=== PATIENT | female | born 1970 | race Hispanic/Latino ===

== ENCOUNTER 2017-08-24 10:52 | Emergency (ER) | payer OTHER ==
[2017-08-24 11:24] VITALS: BP 153/91
[2017-08-24] MEDS ORDERED: TESSALON PERLES PO ONE (12:48)
[2017-08-24] MEDS ORDERED: ZOFRAN ODT PO ONE (12:48)
--- NOTE | 2017-08-24 12:57 | Emergency Department Report ---
- General Chief Complaint: Upper Respiratory Infection Stated Complaint: FLU LIKE SYMPTOMS Time Seen by Provider: 08/24/17 12:01 Source: patient Mode of arrival: Ambulatory Limitations: No Limitations - History of Present Illness Initial Comments: This is a 47-year-old female nontoxic, well nourished in appearance, no acute signs of distress presents to the ED with c/o of nasal congestion, productive cough, nausea, vomiting, rash 1 week. Patient denies recent travels, long car rides, or recent hospital stays. Patient describes productive cough as well as yellow/green mucous production. Patient states she only gets nauseous and vomits every time she coughs but denies otherwise. Patient denies any abdominal pain, chest pain, shortness of breath, fever, chills, nausea, vomiting , headache or stiff neck. Denies any pelvic pain. Denies any back pain. Patient denies any calf pain or tenderness. Denies any hemoptysis. Denies any allergies or past medical history. MD Complaint: cough, sore throat, rhinorrhea, nasal congestion -: week(s) (1) Severity: mild Severity scale (0 -10): 8 Quality: aching Consistency: constant Improves With: nothing Worsens With: nothing Associated Symptoms: rhinorrhea, nasal congestion, sore throat, cough. denies: fever, chills, myalgias, diaphoresis, headache, stiff neck, chest pain, shortness of breath, abdominal pain, nausea, vomiting, diarrhea, dysuria, rash, confusion, right sweats, weight loss, epistaxis, hoarseness, ear pain Treatments Prior to Arrival: none - Related Data Previous Rx's Medication Instructions Recorded Last Taken Type Amoxicillin/K Clav Tab [Augmentin 1 tab PO Q12HR #20 tab 08/24/17 Unknown Rx 875 mg] Benzonatate [Tessalon Perle] 100 mg PO Q8H #15 capsule 08/24/17 Unknown Rx Ondansetron [Zofran Odt] 4 mg PO Q8H #15 tab.rapdis 08/24/17 Unknown Rx Allergies Allergy/AdvReac Type Severity Reaction Status Date / Time No Known Allergies Allergy Verified 08/24/17 11:25 ED Review of Systems ROS: Stated complaint: FLU LIKE SYMPTOMS Other details as noted in HPI Constitutional: denies: chills, fever Eyes: denies: eye pain, eye discharge, vision change ENT: throat pain. denies: ear pain Respiratory: cough. denies: shortness of breath, wheezing Cardiovascular: denies: chest pain, palpitations Endocrine: no symptoms reported Gastrointestinal: nausea, vomiting. denies: abdominal pain, diarrhea Genitourinary: denies: urgency, dysuria, discharge Musculoskeletal: denies: back pain, joint swelling, arthralgia Skin: rash. denies: lesions Neurological: denies: headache, weakness, paresthesias Psychiatric: denies: anxiety, depression Hematological/Lymphatic: denies: easy bleeding, easy bruising ED Past Medical Hx - Past Medical History Previous Medical History?: No - Surgical History Past Surgical History?: No - Social History Smoking Status: Current Every Day Smoker Substance Use Type: None - Medications Home Medications: Home Medications Medication Instructions Recorded Confirmed Last Taken Type Amoxicillin/K Clav Tab [Augmentin 1 tab PO Q12HR #20 tab 08/24/17 Unknown Rx 875 mg] Benzonatate [Tessalon Perle] 100 mg PO Q8H #15 capsule 08/24/17 Unknown Rx Ondansetron [Zofran Odt] 4 mg PO Q8H #15 tab.rapdis 08/24/17 Unknown Rx ED Physical Exam - General Limitations: No Limitations General appearance: alert, in no apparent distress - Head Head exam: Present: atraumatic, normocephalic, normal inspection - Eye Eye exam: Present: normal appearance, PERRL, EOMI. Absent: scleral icterus, conjunctival injection, nystagmus, periorbital swelling, periorbital tenderness Pupils: Present: normal accommodation - ENT ENT exam: Present: mucous membranes moist, TM's normal bilaterally, normal external ear exam - Expanded ENT Exam Expanded Ear exam: Present: normal external inspection Mouth exam: Present: normal external inspection, tongue normal. Absent: drooling, trismus, muffled voice, tongue elevation, laceration Teeth exam: Present: normal inspection Throat exam: Positive: tonsillar erythema, tonsillomegaly (2+), tonsillar exudate, other (Uvula midline. No abscess or swelling noted. ). Negative: R peritonsillar mass, L peritonsillar mass - Neck Neck exam: Present: normal inspection, full ROM. Absent: tenderness, meningismus, lymphadenopathy, thyromegaly - Respiratory Respiratory exam: Present: normal lung sounds bilaterally. Absent: respiratory distress, wheezes, rales, rhonchi, stridor, chest wall tenderness, accessory muscle use, decreased breath sounds, prolonged expiratory - Cardiovascular Cardiovascular Exam: Present: regular rate, normal rhythm, normal heart sounds. Absent: irregular rhythm, systolic murmur, diastolic murmur, rubs, gallop - GI/Abdominal GI/Abdominal exam: Present: soft, normal bowel sounds. Absent: distended, tenderness, guarding, rebound, rigid, diminished bowel sounds - Expanded GI/Abdominal Exam Expanded GI/Abdominal exam: Absent: psoas sign, obturator sign, heel tap sign, Mendoza's sign, Rovsing's sign, tenderness at Mcburney's Point, ascites - Rectal Rectal exam: Present: deferred - Extremities Exam Extremities exam: Present: normal inspection, full ROM, normal capillary refill. Absent: tenderness, pedal edema, joint swelling, calf tenderness - Back Exam Back exam: Present: normal inspection, full ROM. Absent: tenderness, CVA tenderness (R), CVA tenderness (L), muscle spasm, paraspinal tenderness, vertebral tenderness, rash noted - Neurological Exam Neurological exam: Present: alert, oriented X3, CN II-XII intact, normal gait, reflexes normal - Psychiatric Psychiatric exam: Present: normal affect, normal mood - Skin Skin exam: Present: warm, dry, intact, normal color, rash (macularpapular rash that upper extremity.) ED Course Vital Signs 08/24/17 11:22 Temperature 98.2 F Pulse Rate 103 H Respiratory 18 Rate Blood Pressure 153/91 O2 Sat by Pulse 95 Oximetry - Reevaluation(s) Reevaluation #1: 08/24/17 12:59 Patient is speaking in full sentences with no signs of distress noted. ED Medical Decision Making - Medical Decision Making This is a 47-year-old female that presents with upper resp infection and tonsillitis with exudates. Patient is stable and was examined by me. Influenza and strep obtained and negative. CXR obtained and dictated by radiologist. Patient was notified of xray results with no questions noted. Patient is treated with augmentin at d/c. Patient received Zofran and Tessalon Franca at discharge. By mouth challenge obtained and patient how well with no signs of any nausea vomiting. Patient states she feels much better after receiving Tessalon Perles and Zofran. Patient was instructed to Follow-up with a primary care doctor in 3-5 days or if symptoms worsen and continue return to emergency room as soon as possible. At time time of discharge, the patient does not seem toxic or ill in appearance. No acute signs of distress noted. Patient agrees to discharge treatment plan of care. No further questions noted by the patient. Critical care attestation.: If time is entered above; I have spent that time in minutes in the direct care of this critically ill patient, excluding procedure time. ED Disposition Clinical Impression: Tonsillitis with exudate Upper respiratory infection Qualifiers: URI type: unspecified URI Qualified Code(s): J06.9 - Acute upper respiratory infection, unspecified Disposition: - TO HOME OR SELFCARE Is pt being admited?: No Does the pt Need Aspirin: No Condition: Stable Instructions: Benzonatate (By mouth), Amoxicillin/Clavulanate Potassium (By mouth), Ondansetron (By mouth), Upper Respiratory Infection (ED), Tonsillitis ( ED) Additional Instructions: Follow-up with a primary care doctor in 3-5 days or if symptoms worsen and continue return to emergency room as soon as possible. Prescriptions: Amoxicillin/K Clav Tab [Augmentin 875 mg] 1 tab PO Q12HR #20 tab Benzonatate [Tessalon Perle] 100 mg PO Q8H #15 capsule Ondansetron [Zofran Odt] 4 mg PO Q8H #15 tab.jackie Referrals: PRIMARY MD BOO [Primary Care Provider] - 3-5 Days TAMRA CAR MD [Staff Physician] - 3-5 Days [facility] [Outside] - 3-5 Days [facility] [Outside] - 3-5 Days Forms: Work/School Release Form(ED)
--- NOTE | 2017-08-24 13:17 | XRay Report ---
ROUTINE CHEST, TWO VIEWS: HISTORY: Cough. The trachea, heart, mediastinal contour, lung sotelo and bony thorax are unremarkable. IMPRESSION: Unremarkable chest x-ray.
== END 2017-08-24 14:24 | disposition home or self-care (01) ==
LOC: ED 10:52
DX: J03.90 Acute tonsillitis, unspecified (principal); F17.200 Nicotine dependence, unspecified, uncomplicated
CPT/HCPCS: 71020; 87116; 87400; 87430; 99283; Q0162

== ENCOUNTER 2018-01-27 09:42 | Emergency (ER) | payer SELFPAY ==
[2018-01-27 09:54] VITALS: BP 123/78
[2018-01-27 10:57] LABS: Basophils # (Auto) 0.1 K/mm3 (0.0-0.1); Basophils % (Auto) 0.8 % (0.0-1.8); Eosinophils # (Auto) 0.2 K/mm3 (0.0-0.4); Eosinophils % (Auto) 2.7 % (0.0-4.3); Hemoglobin 14.3 gm/dl (10.1-14.3); Lymphocytes # (Auto) 4.4 K/mm3 (1.2-5.4); Lymphocytes % (Auto) 48.8 % (13.4-35.0); Mean Corpuscular HGB Conc 32 % (30-34); Mean Corpuscular Hemoglobin 29 pg (28-32); Mean Corpuscular Volume 90 fl (79-97); Monocytes # (Auto) 0.6 K/mm3 (0.0-0.8); Monocytes % (Auto) 6.5 % (0.0-7.3); Platelet Count 414 K/mm3 (140-440); Red Cell Distribution Width 13.2 % (13.2-15.2)
[2018-01-27 11:13] LABS: BUN/Creatinine Ratio 24; Blood Urea Nitrogen 19 mg/dL (7-17); Calcium 9.6 mg/dL (8.4-10.2); Hemolysis Index 2
--- NOTE | 2018-01-27 11:25 | Emergency Department Report ---
ED Shortness of Breath HPI - General Chief Complaint: Dyspnea/Respdistress Stated Complaint: FLU LIKE SYMPTOMS Time Seen by Provider: 01/27/18 11:08 Source: patient Mode of arrival: Ambulatory Limitations: No Limitations - History of Present Illness Initial Comments: Patient is a 47-year-old female who has an extensive smoking history who states that she has had a cough for the past day. Patient states that she is somewhat dizzy at times. Patient states she feels like she couldn't work today. Patient's having yellow sputum that she is coughing. Patient denies any pleuritic pain nausea vomiting or fever at this time. MD Complaint: shortness of breath, cough -: days(s) (2) Severity: mild Pain Scale: 3 Consistency: constant Improves With: nothing Worsens With: coughing Associated Symptoms: cough, sputum production - Related Data Previous Rx's Medication Instructions Recorded Last Taken Type Amoxicillin/K Clav Tab [Augmentin 1 tab PO Q12HR #20 tab 08/24/17 Unknown Rx 875 mg] Benzonatate [Tessalon Perle] 100 mg PO Q8H #15 capsule 08/24/17 Unknown Rx Ondansetron [Zofran Odt] 4 mg PO Q8H #15 tab.rapdis 08/24/17 Unknown Rx ALBUTEROL Inhaler [ProAir HFA 2 puff IH QID PRN #1 inhalation 01/27/18 Unknown Rx Inhaler] Azithromycin [Zithromax Z-NADEEM] 250 mg PO DAILY #6 tablet 01/27/18 Unknown Rx predniSONE [Deltasone] 20 mg PO QDAY #5 tab 01/27/18 Unknown Rx Allergies Allergy/AdvReac Type Severity Reaction Status Date / Time No Known Allergies Allergy Verified 08/24/17 11:25 ED Review of Systems ROS: Stated complaint: FLU LIKE SYMPTOMS Other details as noted in HPI Comment: All other systems reviewed and negative ED Past Medical Hx - Past Medical History Previous Medical History?: Yes Hx Hypertension: Yes - Surgical History Past Surgical History?: Yes Additional Surgical History: Tubaligation - Social History Smoking Status: Current Every Day Smoker Substance Use Type: Prescribed - Medications Home Medications: Home Medications Medication Instructions Recorded Confirmed Last Taken Type Amoxicillin/K Clav Tab [Augmentin 1 tab PO Q12HR #20 tab 08/24/17 Unknown Rx 875 mg] Benzonatate [Tessalon Perle] 100 mg PO Q8H #15 capsule 08/24/17 Unknown Rx Ondansetron [Zofran Odt] 4 mg PO Q8H #15 tab.rapdis 08/24/17 Unknown Rx ALBUTEROL Inhaler [ProAir HFA 2 puff IH QID PRN #1 inhalation 01/27/18 Unknown Rx Inhaler] Azithromycin [Zithromax Z-NADEEM] 250 mg PO DAILY #6 tablet 01/27/18 Unknown Rx predniSONE [Deltasone] 20 mg PO QDAY #5 tab 01/27/18 Unknown Rx ED Physical Exam - General Limitations: No Limitations General appearance: alert, in no apparent distress - Head Head exam: Present: atraumatic, normocephalic - Eye Eye exam: Present: normal appearance - ENT ENT exam: Present: mucous membranes moist - Neck Neck exam: Present: normal inspection - Respiratory Respiratory exam: Present: normal lung sounds bilaterally. Absent: respiratory distress, wheezes, rales, rhonchi, stridor - Cardiovascular Cardiovascular Exam: Present: regular rate, normal rhythm. Absent: systolic murmur, diastolic murmur, rubs, gallop - GI/Abdominal GI/Abdominal exam: Present: soft, normal bowel sounds. Absent: distended, tenderness, guarding, rebound - Extremities Exam Extremities exam: Present: normal inspection - Back Exam Back exam: Present: normal inspection - Neurological Exam Neurological exam: Present: alert, oriented X3 - Psychiatric Psychiatric exam: Present: normal affect, normal mood - Skin Skin exam: Present: warm, dry, intact, normal color. Absent: rash ED Course Vital Signs 01/27/18 09:49 Temperature 98.1 F Pulse Rate 114 H Respiratory 20 Rate Blood Pressure 123/78 O2 Sat by Pulse 98 Oximetry ED Medical Decision Making - Lab Data Result diagrams: 01/27/18 10:36 01/27/18 10:36 - EKG Data -: EKG Interpreted by Me - EKG Data Interpretation: other (EKG shows a normal sinus rhythm rate of 94 normal axis normal intervals and no ST segment elevation or depressions is nonspecific T- wave inversions in aVL, interpretation is 1010) - Radiology Data interpreted by me: Test x-ray shows some bibasilar atelectasis is no obvious infiltrate. - Medical Decision Making Patient has a heavy smoking history be treated for smoking bronchitis be discharged home. Critical care attestation.: If time is entered above; I have spent that time in minutes in the direct care of this critically ill patient, excluding procedure time. ED Disposition Clinical Impression: Acute bronchitis Qualifiers: Bronchitis organism: unspecified organism Qualified Code(s): J20.9 - Acute bronchitis, unspecified Disposition: DC-01 TO HOME OR SELFCARE Is pt being admited?: No Does the pt Need Aspirin: No Condition: Stable Instructions: Acute Bronchitis (ED) Referrals: PRIMARY CARE, [Primary Care Provider] - 3-5 Days Forms: Work/School Release Form(ED)
--- NOTE | 2018-01-27 11:26 | XRay Report ---
ROUTINE CHEST, TWO VIEWS: HISTORY: Shortness of breath. The trachea, heart, mediastinal contour, lung sotelo and bony thorax are unremarkable. IMPRESSION: Unremarkable chest x-ray.
== END 2018-01-27 11:33 | disposition home or self-care (01) ==
LOC: ED 09:42
DX: J20.9 Acute bronchitis, unspecified (principal); I10 Essential (primary) hypertension; F17.200 Nicotine dependence, unspecified, uncomplicated
CPT/HCPCS: 36415; 71046; 80048; 84484; 85025; 93005; 93010; 99284